=== PATIENT | male | born 1985 | race Caucasian/White ===

== ENCOUNTER 2022-06-03 09:37 | Emergency (ER) | payer OTHER, SELFPAY ==
[2022-06-03 09:42] VITALS: TEMP 36.1; BMI 32.3
--- NOTE | 2022-06-03 10:07 | CRLHL7_ITS ---
For Patients: As a result of the Century Cures Act, medical imaging exams and procedure reports are released immediately into your electronic medical record. You may view this report before your referring provider. If you have questions, please contact your health care provider. INDICATION: Decreased breath sounds right lower lung base TECHNIQUE: Chest 2 views COMPARISON: None FINDINGS: Cardiovascular and mediastinum: Heart size and vasculature are normal in caliber and appearance. Lungs and pleural spaces: Lungs are clear. No sign of infiltrate or mass. No sign of pleural effusion. No pneumothorax. Bones and soft tissues: No significant findings. IMPRESSION: No acute findings. Dictated by Larry Grant MD @ 06/03/2022 10:43:50 AM (Electronically Signed)
--- NOTE | 2022-06-03 10:07 | CRLHL7_ITS ---
For Patients: As a result of the Cures Act, medical imaging exams and procedure reports are released immediately into your electronic medical record. You may view this report before your referring provider. If you have questions, please contact your health care provider. INDICATION: Pain at T7 through 9 TECHNIQUE: 3-view thoracic spine. COMPARISON: none FINDINGS: The thoracic vertebrae are anatomically aligned. The disc spaces are of normal height. There is no evidence of a fracture or intrinsic bone lesion. The posterior ribs and paraspinal soft tissues appear normal. IMPRESSION: Negative thoracic spine. Dictated by Larry Grant MD @ 06/03/2022 10:45:09 AM (Electronically Signed)
--- NOTE | 2022-06-03 10:07 | ED.BACK ---
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 Patient states that he usually gets back discomfort in the lower area. He states that for at least a decade he has had numbness on the lateral surfaces of both of his thighs. He notes that the [employer] has not been able to figure out why this has occurred. He does describe previous falls on ships. He notes he has gone through physical therapy. Today, however he has new discomfort in the interscapular area. He states that this morning he was brushing his teeth and began choking on the toothpaste. He is not sure what his activity was but thinks that he bent forward suddenly. He noticed immediate tightness in his upper back but when he sat down to finish dressing he had increasing discomfort. He states that it is hard to breathe with this and it is hard to move. He notes he has discomfort on the outside of his legs/lower thighs at this time. This is the same area which she has been experiencing chronic pain. He has not taken anything for discomfort at this time. Patient notes no loss of bowel or bladder control. Pain radiates inferiorly and superiorly. He prefers to stay standing and not moving. Patient denies any anterior chest pain. Pain is worsened with deep breathing and with any movement. He is not dizzy, experiencing nausea vomiting. He does not state that there is any tearing sensation. This all occurred after the choking episode. MD elicited complaint: back pain Pertinent past history: prior back pain (Typically low back) and recent trauma (Coughing episode) Onset (ago): hour(s) Timing: constant Severity: severe Similar Symptoms Previously: No Quality: spasming Location: thoracic spine Radiation: left upper leg and right upper leg Exacerbating factors: movement Relieving factors: sitting upright and other (Standing) Context: other (Coughing episode with choking.) Associated symptoms: numbness (Chronic numbness in the thighs bilaterally.) Work related injury: No Related Data Home Medications Medication Instructions Recorded Confirmed propranolol 10 mg tablet 10 mg PO DAILY 06/03/22 06/03/22 Allergies Allergy/AdvReac Type Severity Reaction Status Date / Time No Known Drug Allergies Allergy Verified 06/03/22 09:42 Review of Systems Status of ROS: Reports: 6 or more systems reviewed and unremarkable except as noted in History and below Const: Denies: fever or chills Eyes: Denies: change in vision ENMT: Denies: throat pain or difficulty swallowing Cardio: Reports: shortness of breath with exertion (Difficult to take increased breath because of increased pain.); Denies: chest pain Resp: Reports: shortness of breath (Difficult to take increased breath because of increased pain.) GI: Reports: other (No loss of bowel or bladder control); Denies: abdominal pain, nausea, vomiting or difficulty swallowing : Denies: painful urination or urinary frequency Musculo: Reports: back pain (See HPI) Integ/Breast: Denies: rash Neuro: Reports: numbness in extremities (Chronic); Denies: headache or weakness in extremities Psych: Reports: anxiety Endo: Denies: excessive urination PFSH PFS Social History Smoking Status: Never smoker Do you use any of these nicotine containing products: E-Cigarettes Second hand tobacco smoke exposure: No How often do you have a drink containing alcohol: 2-3 times a week How many standard drinks containing alcohol do you have on a typical day: 1 or 2 How often do you have six or more drinks on one occasion: Never AUDIT-C Alcohol total score: 3 Non-prescribed substance use: denies use service: Yes Exam Narrative: Exam Narrative: Past medical history: Chronic leg numbness bilateral. Patient notes that they have not been able to ascertain etiology of this. He describes falling early in his [employer] career. He states he has been through PT. He has chronic numbness of the lateral thighs bilaterally Anxiety currently on propanolol Recent diagnosis of hyperlipidemia Social history: Patient is his is present. They live in [place]. 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 Denies tobacco use. Alcohol use is 1 small whiskey daily.. No drug use. Const: Vital Signs, click to edit/add: Vital Signs - 24 hr 06/03/22 09:42 Temperature 97 F L Documenting provider has reviewed patient's vital signs: yes Common normals: oriented x3, healthy appearing, alert and well nourished General appearance: cooperative, well kempt and well developed; not diaphoretic HENMT: Common normals: head/scalp not atraumatic Head and scalp: not atraumatic Face and sinus: normal facial exam Eye: General eye: normal appearance of both eyes Neck & C-Spine: Common normals: full ROM, supple and no meningeal signs Cervical spine: cervical ROM normal Resp: Effort & inspection: able to speak in complete sentences, symmetric chest movement and decreased respiratory effort; not actively coughing Other: Patient noted to have decreased respiratory effort initially. However with auscultation he is now breathing normally. I am wondering about slightly decrease he had breath sounds on the right. No crackles are noted. Cardio: Common normals: regular rate (Approximately 70 beats per minute) and regular rhythm Rate: regular rate (Approximately 70 beats per minute) Rhythm: regular rhythm Other: No evidence of murmur or additional heart sounds GI: Common normals: soft to palpation and non-tender; mass(es) Palpation: soft : Common normals: no CVA tenderness Bladder/kidney exam: no CVA tenderness Back & Pelvis: Common normals: no CVA tenderness and thoracic and lumbar spine normal to inspection Lumbar spine/lower back: normal to inspection Other: Patient has point tenderness noted over the thoracic spine T7 to approximately T9. It appears to be more so in the paraspinous musculature adjacent to this area. No discomfort with palpation of the cervical spine upper thoracic spine or lumbar spine. Neuro: Common normals: oriented x3 and deep tendon reflexes 2+ bilaterally Sensorium/orientation: alert Meningeal signs: no meningeal signs Speech: speech normal Other: Patient noted to have symmetrical strength in hip flexion knee extension and knee flexion as well as ankle flexion and extension. Patient was able to stand on his tiptoes and on his heels without difficulty. DTRs 1+ bilaterally at the knees. Psych: Common normals: mental status grossly normal Appearance: well kempt Skin: Narrative: Multiple tattoos. Course Course Hospital Course: Patient noted to have the onset of thoracic spine pain, localized in complaint and with examination. This all occurred after a choking episode. He has no chest pain but describes spasming in his upper back. Lower extremity exam does not show any neurological deficits at this time. Given the intensity of the discomfort we will get a thoracic spine film as well as chest x-ray. Patient is receptive to receiving Toradol 30 mg IM. Reevaluation(s) Reevaluation #1: Patient is noted to have just received his medication. We do discuss that his chest x-ray and thoracic spine x-ray have been read as normal by Radiology. At this time his examination history and localized discomfort suggests musculoskeletal problem. Other diagnoses considered did include compression fracture, aortic dissection, pneumonia, pneumothorax. Given history symptoms and examination I do think this likely represents musculoskeletal strain. Vital Signs Vital signs: Initial Vital Signs Temperature 97 F L 06/03/22 09:42 Temperature Source Temporal Artery Scan 06/03/22 09:42 Vital Signs Temperature 97 F L 06/03/22 09:42 Temperature 97 F L 06/03/22 09:42 MDM - Back Pain/Injury MDM Narrative Medical decision making narrative: 1. Thoracic spine pain-pain does not radiate to chest and is localized to palpation to T7 through T9 interscapular area. Patient was given Toradol 30 mg IM. Subjectively he was noted to be doing better. Will have him continue an anti-inflammatory as Aleve 2 tablets p.o. b.i.d. x3 days. His next dose of an anti-inflammatory will be this evening before bedtime. In addition I will give him Flexeril 10 mg p.o. t.i.d. p.r.n. number 30 via [employer]. He is informed that this medication will be sedating and he is not to use alcohol nor drive if using this medication. If he has worsening symptoms would like him to return to the emergency room for further evaluation. We did speak briefly about CT versus MRI for his discomfort. 2. Lower extremity numbness and discomfort-patient describes over 10 years of bilateral leg numbness and discomfort. He has been through multiple physical therapy programs as well as had multiple workups. Again, if he has worsening symptoms would have him return to the ER for further evaluation at potential advanced imaging. 3. Disposition-patient will be discharged home in the care of his . A note for work to be off today is given to him. He is to return for the onset of new symptoms or worsening of his current symptoms. Medical Records Medical records narrative: No records available for review. Imaging Data Chest x-ray: Attestation: I have reviewed the pertinent imaging results. My impression: No acute findings of the chest x-ray. No evidence of pneumothorax or pneumonia. No acute compression fracture or lesions noted on thoracic spine x-rays Radiologist's impression: No acute finding on chest x-ray or thoracic spine x-rays Discharge Plan Discharge Clinical Impression: Pain in thoracic spine Patient Disposition: Home w/ Parent or Adult Condition: Unchanged Instructions: Back Pain (ED) Additional Instructions: Continue anti-inflammatories as Aleve [id number]. Your next dose will be 2 tablets before bedtime tonight. Continue 2 tablets twice daily (every 12 hours) for the next 3 days. You may use Flexeril, a muscle relaxant as needed for muscle spasm. Reminder that you should not use alcohol nor drive with this medication as it is sedating. Return to the ER or seek medical attention for worsening symptoms. Especially for loss of bowel or bladder control, increasing pain, onset of new symptoms. Prescriptions: No Action propranolol 10 mg tablet 10 mg PO DAILY Follow Up/Referrals: Provider,Not a Local [Primary Care Provider] - Stand Alone Forms: [employer] Info Instructions
[2022-06-03] MEDS: KETOROLAC 30 MG/ML inj IM (10:37)
== END 2022-06-03 11:22 | disposition home or self-care (01) ==
PROVIDERS: Emergency Provider Family Medicine
DX: M54.6 Pain in thoracic spine (principal); R20.0 Anesthesia of skin; M79.605 Pain in left leg; M79.604 Pain in right leg
CPT/HCPCS: 71046; 72070; 96372; 99283; 99284; J1885